=== PATIENT | male | born 2000 | race Caucasian/White ===

== ENCOUNTER 2021-03-21 00:57 | Emergency (ER) | payer MEDICAID ==
[~2021-03-21] VITALS: Ht 170.2 cm; Wt 170.5 kg
[~2021-03-21 00:57] MED LIST: OLAN10TA74 PO
[2021-03-21] MEDS ORDERED: IBUPROFEN 600 MG TABLET PO ONE (01:30)
[2021-03-21 01:31] LABS: GLUCOMETER DEV NAME(LOC) ERT.5; GLUCOSE,POINT OF CARE 283 MG/DL (70-110)
[2021-03-21] MEDS ORDERED: AMOXICILLIN TRIHYDRATE 250 MG CAPSULE PO ONE (02:00)
[2021-03-21] MEDS ORDERED: SULFACETAMIDE SODIUM 10% 15 ML OPHTHALMIC SOLUTION OS ONE (07:15)
[2021-03-21] MEDS ORDERED: SULFACETAMIDE SODIUM 10% OS ONE (07:15)
[2021-03-21 07:31] VITALS: BP 162/103
== END 2021-03-21 07:35 | disposition home or self-care (01) ==
LOC: EMS 00:58
DX: S02.5XXA Fracture of tooth (traumatic), initial encounter for closed fracture (principal); K02.9 Dental caries, unspecified; E11.9 Type 2 diabetes mellitus without complications; X58.XXXA Exposure to other specified factors, initial encounter; Y93.89 Activity, other specified; Y92.89 Other specified places as the place of occurrence of the external cause; Y99.8 Other external cause status
CPT/HCPCS: 82962; 99283

== ENCOUNTER 2021-07-13 23:23 | Inpatient (IN) | payer MEDICAID ==
[~2021-07-13] VITALS: Ht 170.2 cm; Wt 153.8 kg
[2021-07-14 01:42] LABS: COVID AG,FIA SOURCE NASAL SWAB
[2021-07-14 01:46] LABS: BASOPHILS % (AUTO) 0.8 % (0.0-2.0); EOSINOPHILS % (AUTO) 2.1 % (1.0-6.0); HEMATOCRIT 40.1 % (41-53); HEMOGLOBIN 13.4 g/dL (13.5-17.5); LYMPHOCYTES % (AUTO) 32.5 % (22.0-44.0); MEAN CORPUSCULAR HEMOGLOBIN 29.4 pg (26.0-34.0); MEAN CORPUSCULAR HGB CONC 33.4 G/dL (31.0-37.0); MEAN CORPUSCULAR VOLUME 88 fL (80-100); MONOCYTES # (AUTO) 0.8 K/uL (0.1-1.0); MONOCYTES % (AUTO) 8.6 % (2.0-9.0); NEUTROPHILS # (AUTO) 5.2 K/uL (1.8-7.7); PLATELET COUNT (AUTO) 301 K/uL (150-450); RED BLOOD CELL COUNT(AUTO) 4.54 MIL/uL (4.50-5.90); RED CELL DISTRIBUTION WIDTH 14.9 % (11.5-14.5)
[2021-07-14 01:59] LABS: ANION GAP 9 mmol/L (8-16); CALCIUM, TOTAL 9.7 mg/dL (8.8-10.5); CARBON DIOXIDE 28 mmol/L (22-29); CHLORIDE 100 mmol/L (98-107); CREATININE 0.81 mg/dL (0.60-1.30); GLOMERULAR FILTR. RATE CALC > 60 mL/min (>60); GLUCOSE,RANDOM 255 mg/dL (70-110); POTASSIUM 4.1 mmol/L (3.5-5.1); SODIUM SERUM 137 mmol/L (136-145); UREA NITROGEN, BLOOD 18 mg/dL (7-18)
[2021-07-14 02:04] LABS: ALANINE AMINOTRANSFERASE 160 U/L (12-78); ALBUMIN 4.1 g/dL (3.4-5.0); ALKALINE PHOSPHATASE 58 U/L (46-116); ASPARTATE AMINOTRANSFERASE 92 U/L (15-37); BILIRUBIN,TOTAL 0.4 mg/dL (0.1-1.0); TOTAL PROTEIN, SERUM 8.4 g/dL (6.4-8.2)
[2021-07-14] MEDS ORDERED: ZOLPIDEM TARTRATE 10 MG TABLET PO PRN (03:30)
[2021-07-14] MEDS ORDERED: HALOPERIDOL 5 MG TABLET PO PRN (03:30)
[2021-07-14 07:46] LABS: APPEARANCE,URINE CLEAR (CLEAR); BILIRUBIN,URINE NEGATIVE (NEGATIVE); GLUCOSE, URINE (UA) 300-500 mg/dL (NEGATIVE); KETONES,URINE NEGATIVE (NEGATIVE); LEUKOCYTE ESTERASE ,URINE NEGATIVE (NEGATIVE); NITRATE,URINE NEGATIVE (NEGATIVE); OCCULT BLOOD,URINE NEGATIVE (NEGATIVE); PH,URINE 5.5 (5.0-8.0); PROTEIN,URINE 30-70 mg/dL (NEGATIVE); SPECIFIC GRAVITIY, URINE 1.039 (1.003-1.030); UROBILINOGEN,URINE <=1.0 mg/dL (<=1.0)
[2021-07-14 07:57] LABS: AMPHET/METH SCREEN,URINE NEGATIVE (NEGATIVE); BARBITURATE SCREEN, URINE NEGATIVE (NEGATIVE); BENZODIAZEPINES SCREEN,URINE NEGATIVE (NEGATIVE); CANNABINOID SCREEN,URINE NEGATIVE (NEGATIVE); COCAINE SCREEN,URINE NEGATIVE (NEGATIVE); METHADONE SCREEN, URINE NEGATIVE (NEGATIVE); OPIATE SCREEN,URINE NEGATIVE (NEGATIVE)
[2021-07-14 08:01] LABS: PHENCYCLIDINE SCREEN,URINE NEGATIVE (NEGATIVE)
[2021-07-14 08:26] LABS: BACTERIA,URINE None Seen /HPF (None Seen); CALCIUM OXALATE CRYSTALS,UR Few /LPF (None Seen); RBC,URINE None Seen /HPF (0-2); SQUAMOUS EPITHELIAL CELL,UR Few /LPF (None Seen); WBC,URINE None Seen /HPF (0-5)
[2021-07-14 17:06] LABS: GLUCOSE,POINT OF CARE 218 MG/DL (70-110)
[2021-07-14 19:36] VITALS: BP 134/70
[2021-07-14] MEDS ORDERED: PNEUMOCOCCAL VACCINE POLYVALENT 0.5 ML VIAL [PPSV23] IM. ONE (20:15)
[2021-07-14 20:51] LABS: GLUCOMETER DEV NAME(LOC) BV2S.; GLUCOSE,POINT OF CARE 223 MG/DL (70-110)
[2021-07-15 00:19] VITALS: BP 131/74
[2021-07-15] MEDS ORDERED: PETROLATUM,WHITE 28 GM JELLY TP PRN (06:15)
[2021-07-15] MEDS ORDERED: INSULIN LISPRO 100 UNITS/ML SQ PRN (06:15)
[2021-07-15] MEDS ORDERED: LOPERAMIDE HCL 2 MG CAPSULE PO PRN (06:15)
[2021-07-15] MEDS ORDERED: ACETAMINOPHEN 325 MG TABLET PO PRN (06:15)
[2021-07-15] MEDS ORDERED: DOCUSATE SODIUM 100 MG CAPSULE PO PRN (06:15)
[2021-07-15] MEDS ORDERED: NICOTINE 14 MG/24 HOUR PATCH TD PRN (06:15)
[2021-07-15] MEDS ORDERED: ALBUTEROL SULFATE HFA 90 MCG/PUFF 8 GM INHALER IH PRN (06:15)
[2021-07-15] MEDS ORDERED: IBUPROFEN 400 MG TABLET PO PRN (06:15)
[2021-07-15] MEDS ORDERED: CloNIDine HCL 0.1 MG TABLET PO PRN (06:15)
[2021-07-15] MEDS ORDERED: MAGNESIUM HYDROXIDE SUSPENSION 30 ML UDCUP PO PRN (06:15)
[2021-07-15] MEDS ORDERED: DEXTROSE 50%-WATER 25 GM/50 ML SYRINGE IVP PRN (06:15)
[2021-07-15] MEDS ORDERED: GLUCAGON,HUMAN RECOMBINANT 1 MG VIAL IM PRN (06:15)
[2021-07-15] MEDS ORDERED: ONDANSETRON HCL 4 MG TABLET PO PRN (06:15)
[2021-07-15] MEDS ORDERED: GuaiFENesin/D-METHORPHAN [SUGAR-FREE] 200-20MG/10 ML SYRUP UDCUP PO PRN (06:15)
[2021-07-15 08:20] VITALS: BP 129/76
[2021-07-15] MEDS: LORazepam 2 MG TABLET PO PRN (08:42)
[2021-07-15] MEDS ORDERED: PALIPERIDONE PALMITATE 234 MG/1.5 ML SYRINGE IM ONE (11:00)
[2021-07-15] MEDS: INSULIN LISPRO 100 UNITS/ML SQ PRN ×3 (11:19→20:37)
[2021-07-15 15:01] LABS: GLUCOMETER DEV NAME(LOC) BV2S.; GLUCOSE,POINT OF CARE 296 MG/DL (70-110)
[2021-07-15] MEDS: MetFORMIN HCL 500 MG TABLET PO SCH (15:59)
[2021-07-15 16:20] VITALS: BP 116/79
[2021-07-15 16:46] LABS: GLUCOMETER DEV NAME(LOC) BV2S.; GLUCOSE,POINT OF CARE 167 MG/DL (70-110)
[2021-07-15] MEDS: QUEtiapine FUMARATE 200 MG TABLET PO SCH (20:12)
[2021-07-15] MEDS: PRAZOSIN HCL 2 MG CAPSULE PO SCH (20:12)
[2021-07-15] MEDS: SERTRALINE HCL 100 MG TABLET PO SCH (20:13)
[2021-07-15 20:51] LABS: GLUCOMETER DEV NAME(LOC) BV2S.; GLUCOSE,POINT OF CARE 190 MG/DL (70-110)
[2021-07-16 04:38] VITALS: BP 147/81
[2021-07-16 06:16] LABS: GLUCOMETER DEV NAME(LOC) BV2S.; GLUCOSE,POINT OF CARE 256 MG/DL (70-110)
[2021-07-16] MEDS: MetFORMIN HCL 500 MG TABLET PO SCH ×2 (06:33→16:48)
[2021-07-16] MEDS: INSULIN LISPRO 100 UNITS/ML SQ PRN ×3 (06:34→16:59)
[2021-07-16 08:23] VITALS: BP 107/52
[2021-07-16 11:26] LABS: GLUCOMETER DEV NAME(LOC) BV2S.; GLUCOSE,POINT OF CARE 169 MG/DL (70-110)
[2021-07-16 16:19] VITALS: BP 138/83
[2021-07-16 16:51] LABS: GLUCOMETER DEV NAME(LOC) BV2S.; GLUCOSE,POINT OF CARE 252 MG/DL (70-110)
[2021-07-16] MEDS: LORazepam 2 MG TABLET PO PRN (19:04)
[2021-07-16] MEDS: QUEtiapine FUMARATE 200 MG TABLET PO SCH (20:57)
[2021-07-16] MEDS: PRAZOSIN HCL 2 MG CAPSULE PO SCH (20:57)
[2021-07-16] MEDS: SERTRALINE HCL 100 MG TABLET PO SCH (20:57)
[2021-07-16 21:21] LABS: GLUCOMETER DEV NAME(LOC) BV2S.; GLUCOSE,POINT OF CARE 261 MG/DL (70-110)
[2021-07-17 00:43] VITALS: BP 132/79
[2021-07-17] MEDS: MetFORMIN HCL 500 MG TABLET PO SCH ×2 (06:46→17:13)
[2021-07-17] MEDS: INSULIN LISPRO 100 UNITS/ML SQ PRN ×4 (06:47→21:01)
[2021-07-17 06:56] LABS: GLUCOMETER DEV NAME(LOC) BV2S.; GLUCOSE,POINT OF CARE 201 MG/DL (70-110)
[2021-07-17 08:57] VITALS: BP 136/81
[2021-07-17 11:41] LABS: GLUCOMETER DEV NAME(LOC) BV2S.; GLUCOSE,POINT OF CARE 190 MG/DL (70-110)
[2021-07-17 16:10] VITALS: BP 137/78
[2021-07-17 16:46] LABS: GLUCOMETER DEV NAME(LOC) BV2S.; GLUCOSE,POINT OF CARE 157 MG/DL (70-110)
[2021-07-17] MEDS: PRAZOSIN HCL 2 MG CAPSULE PO SCH (20:30)
[2021-07-17] MEDS: QUEtiapine FUMARATE 300 MG TABLET PO SCH (20:30)
[2021-07-17] MEDS: SERTRALINE HCL 100 MG TABLET PO SCH (20:30)
[2021-07-17 21:01] LABS: GLUCOMETER DEV NAME(LOC) BV2S.; GLUCOSE,POINT OF CARE 169 MG/DL (70-110)
[2021-07-18 06:21] LABS: GLUCOMETER DEV NAME(LOC) BV2S.; GLUCOSE,POINT OF CARE 176 MG/DL (70-110)
[2021-07-18] MEDS: MetFORMIN HCL 500 MG TABLET PO SCH ×2 (06:48→16:52)
[2021-07-18] MEDS: INSULIN LISPRO 100 UNITS/ML SQ PRN ×4 (06:52→20:34)
[2021-07-18 07:41] LABS: CHOL/HDL RATIO 3.3 (4.2-7.3)
[2021-07-18 08:22] VITALS: BP 122/64
[2021-07-18 12:12] LABS: GLUCOMETER DEV NAME(LOC) BV2S.; GLUCOSE,POINT OF CARE 211 MG/DL (70-110)
[2021-07-18 16:21] VITALS: BP 132/61
[2021-07-18 17:21] LABS: GLUCOMETER DEV NAME(LOC) BV2S.; GLUCOSE,POINT OF CARE 209 MG/DL (70-110)
[2021-07-18 20:20] VITALS: BP 134/68
[2021-07-18] MEDS: PRAZOSIN HCL 2 MG CAPSULE PO SCH (20:21)
[2021-07-18] MEDS: SERTRALINE HCL 100 MG TABLET PO SCH (20:22)
[2021-07-18] MEDS: QUEtiapine FUMARATE 300 MG TABLET PO SCH (20:22)
[2021-07-18] MEDS: MAG HYDROX/AL HYDROX/SIMETH ES 30 ML SUSPENSION UDCUP PO PRN (20:53)
[2021-07-18 21:11] LABS: GLUCOMETER DEV NAME(LOC) BV2S.; GLUCOSE,POINT OF CARE 164 MG/DL (70-110)
[2021-07-19 01:08] VITALS: BP 128/67
[2021-07-19 06:26] LABS: GLUCOMETER DEV NAME(LOC) BV2S.; GLUCOSE,POINT OF CARE 178 MG/DL (70-110)
[2021-07-19] MEDS: MetFORMIN HCL 500 MG TABLET PO SCH ×2 (06:58→16:04)
[2021-07-19] MEDS: INSULIN LISPRO 100 UNITS/ML SQ PRN ×3 (07:00→16:15)
[2021-07-19 08:34] VITALS: BP 123/67
[2021-07-19 11:52] LABS: GLUCOMETER DEV NAME(LOC) BV2S.; GLUCOSE,POINT OF CARE 210 MG/DL (70-110)
[2021-07-19 16:16] VITALS: BP 133/77
[2021-07-19 16:31] LABS: GLUCOMETER DEV NAME(LOC) BV2S.; GLUCOSE,POINT OF CARE 151 MG/DL (70-110)
[2021-07-19] MEDS: SERTRALINE HCL 100 MG TABLET PO SCH (20:29)
[2021-07-19] MEDS: PRAZOSIN HCL 2 MG CAPSULE PO SCH (20:29)
[2021-07-19] MEDS: QUEtiapine FUMARATE 300 MG TABLET PO SCH (20:29)
[2021-07-19] MEDS: MAG HYDROX/AL HYDROX/SIMETH ES 30 ML SUSPENSION UDCUP PO PRN (20:42)
[2021-07-19 20:46] LABS: GLUCOMETER DEV NAME(LOC) BV2S.; GLUCOSE,POINT OF CARE 140 MG/DL (70-110)
[2021-07-20 01:14] VITALS: BP 140/86
[2021-07-20 06:35] LABS: GLUCOMETER DEV NAME(LOC) BV2S.; GLUCOSE,POINT OF CARE 173 MG/DL (70-110)
[2021-07-20] MEDS: MetFORMIN HCL 500 MG TABLET PO SCH ×2 (06:50→16:30)
[2021-07-20] MEDS: INSULIN LISPRO 100 UNITS/ML SQ PRN ×4 (06:51→20:33)
[2021-07-20 09:00] VITALS: BP 121/63
[2021-07-20 12:00] LABS: GLUCOMETER DEV NAME(LOC) BV2S.; GLUCOSE,POINT OF CARE 233 MG/DL (70-110)
[2021-07-20 16:31] VITALS: BP 130/75
[2021-07-20 17:36] LABS: GLUCOMETER DEV NAME(LOC) BV2S.; GLUCOSE,POINT OF CARE 149 MG/DL (70-110)
[2021-07-20] MEDS: QUEtiapine FUMARATE 300 MG TABLET PO SCH (20:24)
[2021-07-20] MEDS: SERTRALINE HCL 100 MG TABLET PO SCH (20:24)
[2021-07-20] MEDS: PRAZOSIN HCL 2 MG CAPSULE PO SCH (20:24)
[2021-07-20 22:06] LABS: GLUCOMETER DEV NAME(LOC) BV2S.; GLUCOSE,POINT OF CARE 207 MG/DL (70-110)
[2021-07-21 01:03] VITALS: BP 125/81
[2021-07-21 06:31] LABS: GLUCOMETER DEV NAME(LOC) BV2X.2; GLUCOSE,POINT OF CARE 164 MG/DL (70-110)
[2021-07-21] MEDS: INSULIN LISPRO 100 UNITS/ML SQ PRN ×4 (06:35→20:53)
[2021-07-21] MEDS: MetFORMIN HCL 500 MG TABLET PO SCH ×2 (06:57→16:48)
[2021-07-21 08:18] VITALS: BP 140/80
[2021-07-21 10:31] LABS: GLUCOMETER DEV NAME(LOC) BV2S.; GLUCOSE,POINT OF CARE 172 MG/DL (70-110)
[2021-07-21 13:31] LABS: GLUCOMETER DEV NAME(LOC) BV2S.; GLUCOSE,POINT OF CARE 229 MG/DL (70-110)
[2021-07-21 16:35] VITALS: BP 142/79
[2021-07-21 16:46] LABS: GLUCOMETER DEV NAME(LOC) BV2S.; GLUCOSE,POINT OF CARE 176 MG/DL (70-110)
[2021-07-21 20:30] VITALS: BP 132/73
[2021-07-21] MEDS: QUEtiapine FUMARATE 300 MG TABLET PO SCH (20:32)
[2021-07-21] MEDS: SERTRALINE HCL 100 MG TABLET PO SCH (20:32)
[2021-07-21] MEDS: PRAZOSIN HCL 2 MG CAPSULE PO SCH (20:33)
[2021-07-21 20:41] LABS: GLUCOMETER DEV NAME(LOC) BV2S.; GLUCOSE,POINT OF CARE 208 MG/DL (70-110)
[2021-07-22] MEDS: MAG HYDROX/AL HYDROX/SIMETH ES 30 ML SUSPENSION UDCUP PO PRN (00:02)
[2021-07-22 00:30] VITALS: BP 136/66
[2021-07-22 06:36] LABS: GLUCOMETER DEV NAME(LOC) BV2S.; GLUCOSE,POINT OF CARE 168 MG/DL (70-110)
[2021-07-22] MEDS: MetFORMIN HCL 500 MG TABLET PO SCH (06:55)
[2021-07-22 08:40] VITALS: BP 104/61
[2021-07-22 08:42] LABS: GLUCOMETER DEV NAME(LOC) POC.BV
[2021-07-22] MEDS ORDERED: QUET300T2 PO (10:51)
[2021-07-22] MEDS ORDERED: METF-1211 PO (10:52)
[2021-07-22] MEDS ORDERED: SERT-162 PO (10:52)
[2021-07-22] MEDS ORDERED: PRAZ2 PO ×2 (10:53→11:49)
[2021-07-22] MEDS: INSULIN LISPRO 100 UNITS/ML SQ PRN (11:24)
[2021-07-22 11:36] LABS: GLUCOMETER DEV NAME(LOC) BV2X.2; GLUCOSE,POINT OF CARE 236 MG/DL (70-110)
[2021-07-22] MEDS ORDERED: QUET300T19 PO (11:49)
[2021-07-22] MEDS ORDERED: SERT-440 PO (11:49)
== END 2021-07-22 13:48 | disposition home or self-care (01) | DRG 750 ==
LOC: EMS 23:24 → B2S 07-14 16:16
PROVIDERS: ADMIT Psychiatry & Neurology Child & Adolescent Psychiatry; ATTEND Psychiatry & Neurology Child & Adolescent Psychiatry
PROC: 3E0234Z Introduction of Serum, Toxoid and Vaccine into Muscle, Percutaneous Approach (ICD-10-PCS; principal; 2021-07-14)
DX: F25.0 Schizoaffective disorder, bipolar type (principal); R45.851 Suicidal ideations; Z68.43 Body mass index [BMI] 50.0-59.9, adult; E11.65 Type 2 diabetes mellitus with hyperglycemia; D64.9 Anemia, unspecified; F31.9 Bipolar disorder, unspecified; E66.9 Obesity, unspecified; F41.9 Anxiety disorder, unspecified; R79.89 Other specified abnormal findings of blood chemistry; Z20.822 Contact with and (suspected) exposure to COVID-19; Z86.16 Personal history of COVID-19; Z59.00 Homelessness unspecified; Z91.19 Patient's noncompliance with other medical treatment and regimen; Z23 Encounter for immunization; Z79.4 Long term (current) use of insulin
CPT/HCPCS: 80053; 80061; 81001; 82962; 83036; 85025; 90732; 99285; G0480

== ENCOUNTER 2021-07-25 23:05 | Inpatient (IN) | payer MEDICAID ==
[~2021-07-25] VITALS: Ht 170.2 cm; Wt 145.0 kg
[~2021-07-25 23:05] MED LIST changes: +METF-1211 PO; -OLAN10TA74 PO; +PRAZ2 PO; +QUET300T19 PO; +QUET300T2 PO; +SERT-162 PO; +SERT-440 PO
[2021-07-25 23:37] LABS: BASOPHILS % (AUTO) 0.6 % (0.0-2.0); EOSINOPHILS % (AUTO) 1.8 % (1.0-6.0); HEMATOCRIT 38.6 % (41-53); HEMOGLOBIN 12.8 g/dL (13.5-17.5); LYMPHOCYTES # (AUTO) 3.2 K/uL (1.0-4.8); LYMPHOCYTES % (AUTO) 32.6 % (22.0-44.0); MEAN CORPUSCULAR HGB CONC 33.2 G/dL (31.0-37.0); MEAN CORPUSCULAR VOLUME 87 fL (80-100); MONOCYTES # (AUTO) 0.8 K/uL (0.1-1.0); MONOCYTES % (AUTO) 7.6 % (2.0-9.0); NEUTROPHILS # (AUTO) 5.7 K/uL (1.8-7.7); NEUTROPHILS % (AUTO) 57.4 % (40.0-70.0); PLATELET COUNT (AUTO) 305 K/uL (150-450); RED BLOOD CELL COUNT(AUTO) 4.42 MIL/uL (4.50-5.90); RED CELL DISTRIBUTION WIDTH 14.8 % (11.5-14.5)
[2021-07-25 23:46] LABS: ANION GAP 9 mmol/L (8-16); CALCIUM, TOTAL 9.3 mg/dL (8.8-10.5); CARBON DIOXIDE 28 mmol/L (22-29); CHLORIDE 104 mmol/L (98-107); CREATININE 0.85 mg/dL (0.60-1.30); GLOMERULAR FILTR. RATE CALC > 60 mL/min (>60); GLUCOSE,RANDOM 213 mg/dL (70-110); SODIUM SERUM 141 mmol/L (136-145); UREA NITROGEN, BLOOD 12 mg/dL (7-18)
[2021-07-25 23:53] LABS: COVID AG,FIA SOURCE NASOPHARYNGEAL
[2021-07-25 23:53] LABS: ALANINE AMINOTRANSFERASE 173 U/L (12-78); ALBUMIN 3.9 g/dL (3.4-5.0); ALKALINE PHOSPHATASE 63 U/L (46-116); ASPARTATE AMINOTRANSFERASE 93 U/L (15-37); BILIRUBIN,TOTAL 0.5 mg/dL (0.1-1.0); TOTAL PROTEIN, SERUM 7.7 g/dL (6.4-8.2)
[2021-07-26 00:09] LABS: AMPHET/METH SCREEN,URINE NEGATIVE (NEGATIVE); BARBITURATE SCREEN, URINE NEGATIVE (NEGATIVE); BENZODIAZEPINES SCREEN,URINE NEGATIVE (NEGATIVE); CANNABINOID SCREEN,URINE NEGATIVE (NEGATIVE); COCAINE SCREEN,URINE NEGATIVE (NEGATIVE); METHADONE SCREEN, URINE NEGATIVE (NEGATIVE); OPIATE SCREEN,URINE NEGATIVE (NEGATIVE); PHENCYCLIDINE SCREEN,URINE NEGATIVE (NEGATIVE)
[2021-07-26] MEDS ORDERED: ZOLPIDEM TARTRATE 10 MG TABLET PO PRN (00:30)
[2021-07-26] MEDS: LORazepam 2 MG TABLET PO PRN ×3 (00:32→17:42)
[2021-07-26 00:54] LABS: APPEARANCE,URINE CLEAR (CLEAR); BILIRUBIN,URINE NEGATIVE (NEGATIVE); GLUCOSE, URINE (UA) >=1000 mg/dL (NEGATIVE); KETONES,URINE TRACE mg/dL (NEGATIVE); LEUKOCYTE ESTERASE ,URINE NEGATIVE (NEGATIVE); NITRATE,URINE NEGATIVE (NEGATIVE); OCCULT BLOOD,URINE NEGATIVE (NEGATIVE); PROTEIN,URINE TRACE mg/dL (NEGATIVE); SPECIFIC GRAVITIY, URINE 1.031 (1.003-1.030)
[2021-07-26 01:34] LABS: BACTERIA,URINE None Seen /HPF (None Seen); CALCIUM OXALATE CRYSTALS,UR Moderate /LPF (None Seen); RBC,URINE 0-2 /HPF (0-2); WBC,URINE None Seen /HPF (0-5)
[2021-07-26 02:51] VITALS: BP 135/77
[2021-07-26 03:06] VITALS: BP 135/77
[2021-07-26] MEDS: HALOPERIDOL 5 MG TABLET PO PRN ×2 (08:19→17:42)
[2021-07-26 08:23] VITALS: BP 119/61
[2021-07-26] MEDS ORDERED: CloNIDine HCL 0.1 MG TABLET PO PRN (10:45)
[2021-07-26] MEDS ORDERED: ONDANSETRON HCL 4 MG TABLET PO PRN (10:45)
[2021-07-26] MEDS ORDERED: IBUPROFEN 400 MG TABLET PO PRN (10:45)
[2021-07-26] MEDS ORDERED: ACETAMINOPHEN 325 MG TABLET PO PRN (10:45)
[2021-07-26] MEDS ORDERED: MAG HYDROX/AL HYDROX/SIMETH ES 30 ML SUSPENSION UDCUP PO PRN (10:45)
[2021-07-26] MEDS ORDERED: DOCUSATE SODIUM 100 MG CAPSULE PO PRN (10:45)
[2021-07-26] MEDS ORDERED: GuaiFENesin/D-METHORPHAN [SUGAR-FREE] 200-20MG/10 ML SYRUP UDCUP PO PRN (10:45)
[2021-07-26] MEDS ORDERED: PETROLATUM,WHITE 28 GM JELLY TP PRN (10:45)
[2021-07-26] MEDS ORDERED: MAGNESIUM HYDROXIDE SUSPENSION 30 ML UDCUP PO PRN (10:45)
[2021-07-26] MEDS ORDERED: NICOTINE 14 MG/24 HOUR PATCH TD PRN (10:45)
[2021-07-26] MEDS ORDERED: LOPERAMIDE HCL 2 MG CAPSULE PO PRN (10:45)
[2021-07-26] MEDS ORDERED: ALBUTEROL SULFATE HFA 90 MCG/PUFF 8 GM INHALER IH PRN (10:45)
[2021-07-26 16:00] VITALS: BP 120/74
[2021-07-26] MEDS: MetFORMIN HCL 500 MG TABLET PO SCH (16:50)
[2021-07-26] MEDS ORDERED: QUEtiapine FUMARATE 100 MG TABLET PO ONE (19:15)
[2021-07-26 20:38] VITALS: BP 143/82
[2021-07-26] MEDS: SERTRALINE HCL 100 MG TABLET PO SCH (20:40)
[2021-07-26] MEDS: PRAZOSIN HCL 2 MG CAPSULE PO SCH (20:40)
[2021-07-26] MEDS: QUEtiapine FUMARATE 300 MG TABLET PO SCH (20:40)
[2021-07-27] MEDS: MetFORMIN HCL 500 MG TABLET PO SCH ×2 (07:02→17:09)
[2021-07-27 08:00] VITALS: BP 118/73
[2021-07-27 08:57] VITALS: BP 118/73
[2021-07-27] MEDS ORDERED: PETROLATUM,WHITE 28 GM JELLY TP PRN (14:00)
[2021-07-27] MEDS ORDERED: ALBUTEROL SULFATE HFA 90 MCG/PUFF 8 GM INHALER IH PRN (14:00)
[2021-07-27] MEDS ORDERED: DOCUSATE SODIUM 100 MG CAPSULE PO PRN (14:00)
[2021-07-27] MEDS ORDERED: NICOTINE 14 MG/24 HOUR PATCH TD PRN (14:00)
[2021-07-27] MEDS ORDERED: ONDANSETRON HCL 4 MG TABLET PO PRN (14:00)
[2021-07-27] MEDS ORDERED: IBUPROFEN 400 MG TABLET PO PRN (14:00)
[2021-07-27] MEDS ORDERED: DEXTROSE 50%-WATER 25 GM/50 ML SYRINGE IVP PRN (14:00)
[2021-07-27] MEDS ORDERED: MAGNESIUM HYDROXIDE SUSPENSION 30 ML UDCUP PO PRN (14:00)
[2021-07-27] MEDS ORDERED: MAG HYDROX/AL HYDROX/SIMETH ES 30 ML SUSPENSION UDCUP PO PRN (14:00)
[2021-07-27] MEDS ORDERED: GuaiFENesin/D-METHORPHAN [SUGAR-FREE] 200-20MG/10 ML SYRUP UDCUP PO PRN (14:00)
[2021-07-27] MEDS ORDERED: LOPERAMIDE HCL 2 MG CAPSULE PO PRN (14:00)
[2021-07-27] MEDS ORDERED: CloNIDine HCL 0.1 MG TABLET PO PRN (14:00)
[2021-07-27] MEDS: HALOPERIDOL 5 MG TABLET PO PRN ×2 (16:12→22:15)
[2021-07-27] MEDS: LORazepam 2 MG TABLET PO PRN ×2 (16:12→22:15)
[2021-07-27 16:37] VITALS: BP 122/74
[2021-07-27] MEDS: INSULIN LISPRO 100 UNITS/ML SQ PRN ×2 (17:32→21:06)
[2021-07-27 20:01] LABS: GLUCOMETER DEV NAME(LOC) 3EX.; GLUCOSE,POINT OF CARE 341 MG/DL (70-110)
[2021-07-27] MEDS: SERTRALINE HCL 100 MG TABLET PO SCH (20:22)
[2021-07-27] MEDS: PRAZOSIN HCL 2 MG CAPSULE PO SCH (20:22)
[2021-07-27] MEDS: QUEtiapine FUMARATE 300 MG TABLET PO SCH (20:22)
[2021-07-27 20:25] VITALS: BP 163/90
[2021-07-27 20:45] LABS: GLUCOMETER DEV NAME(LOC) 3EX.; GLUCOSE,POINT OF CARE 244 MG/DL (70-110)
[2021-07-28 06:01] LABS: GLUCOMETER DEV NAME(LOC) 3EX.; GLUCOSE,POINT OF CARE 285 MG/DL (70-110)
[2021-07-28] MEDS: MetFORMIN HCL 500 MG TABLET PO SCH ×2 (06:40→16:36)
[2021-07-28] MEDS: INSULIN LISPRO 100 UNITS/ML SQ PRN ×4 (06:41→21:05)
[2021-07-28 08:52] VITALS: BP 140/74
[2021-07-28 11:56] LABS: GLUCOMETER DEV NAME(LOC) 3EX.; GLUCOSE,POINT OF CARE 256 MG/DL (70-110)
[2021-07-28 16:00] VITALS: BP 110/63
[2021-07-28] MEDS: ACETAMINOPHEN 325 MG TABLET PO PRN (16:06)
[2021-07-28 16:21] LABS: GLUCOMETER DEV NAME(LOC) 3EX.; GLUCOSE,POINT OF CARE 249 MG/DL (70-110)
[2021-07-28 19:10] VITALS: BP 115/75
[2021-07-28] MEDS: SERTRALINE HCL 100 MG TABLET PO SCH (20:01)
[2021-07-28] MEDS: QUEtiapine FUMARATE 300 MG TABLET PO SCH (20:01)
[2021-07-28] MEDS: PRAZOSIN HCL 2 MG CAPSULE PO SCH (20:01)
[2021-07-28] MEDS ORDERED: BENZOCAINE/MENTHOL/ZINC CL 20% 11.9 GM GEL TP PRN (20:15)
[2021-07-28 20:26] LABS: GLUCOMETER DEV NAME(LOC) 3EX.; GLUCOSE,POINT OF CARE 275 MG/DL (70-110)
[2021-07-29 06:26] LABS: GLUCOMETER DEV NAME(LOC) 3EX.; GLUCOSE,POINT OF CARE 231 MG/DL (70-110)
[2021-07-29] MEDS: MetFORMIN HCL 500 MG TABLET PO SCH ×2 (06:50→16:25)
[2021-07-29] MEDS: INSULIN LISPRO 100 UNITS/ML SQ PRN ×4 (06:50→20:33)
[2021-07-29 08:58] VITALS: BP 139/92
[2021-07-29 12:06] LABS: GLUCOMETER DEV NAME(LOC) 3E.C; GLUCOSE,POINT OF CARE 215 MG/DL (70-110)
[2021-07-29 16:01] VITALS: BP 151/81
[2021-07-29 16:31] LABS: GLUCOMETER DEV NAME(LOC) 3E.I 2; GLUCOSE,POINT OF CARE 220 MG/DL (70-110)
[2021-07-29] MEDS: SERTRALINE HCL 100 MG TABLET PO SCH (20:27)
[2021-07-29 20:28] VITALS: BP 142/81
[2021-07-29] MEDS: QUEtiapine FUMARATE 300 MG TABLET PO SCH (20:28)
[2021-07-29] MEDS: ACETAMINOPHEN 325 MG TABLET PO PRN (20:28)
[2021-07-29] MEDS: PRAZOSIN HCL 2 MG CAPSULE PO SCH (20:28)
[2021-07-29 20:36] LABS: GLUCOMETER DEV NAME(LOC) 3EX.; GLUCOSE,POINT OF CARE 230 MG/DL (70-110)
[2021-07-30] MEDS: MetFORMIN HCL 500 MG TABLET PO SCH ×2 (06:33→17:16)
[2021-07-30] MEDS: INSULIN LISPRO 100 UNITS/ML SQ PRN ×4 (06:35→20:36)
[2021-07-30 06:36] LABS: GLUCOMETER DEV NAME(LOC) 3E.I 2; GLUCOSE,POINT OF CARE 213 MG/DL (70-110)
[2021-07-30 09:16] VITALS: BP 153/85
[2021-07-30 11:47] LABS: GLUCOMETER DEV NAME(LOC) 3E.I 2; GLUCOSE,POINT OF CARE 202 MG/DL (70-110)
[2021-07-30 16:00] VITALS: BP 142/82
[2021-07-30 17:21] LABS: GLUCOMETER DEV NAME(LOC) 3E.I 2; GLUCOSE,POINT OF CARE 171 MG/DL (70-110)
[2021-07-30 20:30] LABS: GLUCOMETER DEV NAME(LOC) 3E.I 2; GLUCOSE,POINT OF CARE 208 MG/DL (70-110)
[2021-07-30] MEDS: PRAZOSIN HCL 2 MG CAPSULE PO SCH (20:52)
[2021-07-30] MEDS: SERTRALINE HCL 100 MG TABLET PO SCH (20:52)
[2021-07-30] MEDS: QUEtiapine FUMARATE 300 MG TABLET PO SCH (20:52)
[2021-07-31 05:46] LABS: GLUCOMETER DEV NAME(LOC) 3E.I 2; GLUCOSE,POINT OF CARE 200 MG/DL (70-110)
[2021-07-31] MEDS: MetFORMIN HCL 500 MG TABLET PO SCH (06:39)
[2021-07-31] MEDS: INSULIN LISPRO 100 UNITS/ML SQ PRN ×2 (06:39→12:34)
[2021-07-31 08:00] VITALS: BP 117/56
[2021-07-31 11:25] LABS: GLUCOMETER DEV NAME(LOC) 3EX.; GLUCOSE,POINT OF CARE 195 MG/DL (70-110)
[2021-07-31] MEDS ORDERED: PRAZ2 PO (11:29)
[2021-07-31] MEDS ORDERED: SERT-440 PO (11:29)
[2021-07-31] MEDS ORDERED: QUET300T19 PO (11:29)
== END 2021-07-31 13:40 | disposition home or self-care (01) | DRG 750 ==
LOC: EMS 23:09 → 3EI 07-26 00:36
PROVIDERS: ADMIT Psychiatry & Neurology Child & Adolescent Psychiatry; ATTEND Psychiatry & Neurology Child & Adolescent Psychiatry
DX: F25.0 Schizoaffective disorder, bipolar type (principal); R45.851 Suicidal ideations; E66.2 Morbid (severe) obesity with alveolar hypoventilation; E11.9 Type 2 diabetes mellitus without complications; Z68.43 Body mass index [BMI] 50.0-59.9, adult; F41.9 Anxiety disorder, unspecified; D64.9 Anemia, unspecified; F43.10 Post-traumatic stress disorder, unspecified; Z20.822 Contact with and (suspected) exposure to COVID-19
CPT/HCPCS: 80053; 81001; 81003; 82962; 85025; 87081; 99285; G0480